=== PATIENT | female | born 1955 | race African-American/Black ===

== ENCOUNTER 2017-12-12 18:55 | Emergency (ER) | payer BC ==
[2017-12-12] MEDS: DIPHENHYDRAMINE 50 MG INJ IM (20:26)
== END 2017-12-12 20:50 | disposition home or self-care (01) ==
LOC: FTE 18:55
DX: S80.861A Insect bite (nonvenomous), right lower leg, initial encounter (principal); S80.862A Insect bite (nonvenomous), left lower leg, initial encounter; S40.861A Insect bite (nonvenomous) of right upper arm, initial encounter; S40.862A Insect bite (nonvenomous) of left upper arm, initial encounter; W57.XXXA Bitten or stung by nonvenomous insect and other nonvenomous arthropods, initial encounter; Y92.9 Unspecified place or not applicable
CPT/HCPCS: 96372; 99284-25; J1200